=== PATIENT | female | born 1990 | race Caucasian/White ===

== ENCOUNTER 2025-05-16 10:34 | Outpatient (CLI) | payer BC | END 2025-05-16 10:35 | disposition home or self-care (01) | LOC: CSHMRI 10:34 | PROVIDERS: ATTEND Obstetrics & Gynecology | DX: Z01.89 Encounter for other specified special examinations (principal); Z15.01 Genetic susceptibility to malignant neoplasm of breast; Z15.09 Genetic susceptibility to other malignant neoplasm; Z15.89 Genetic susceptibility to other disease; Z15.07 Genetic susceptibility to malignant neoplasm of urinary tract; Z15.068 Genetic susceptibility to other malignant neoplasm of digestive system | CPT/HCPCS: C8908 ==